=== PATIENT | female | born 1985 ===

== ENCOUNTER 2018-06-25 21:10 | Inpatient (IN) | payer BC ==
[2018-06-25 22:16] VITALS: BMI 29.4
[2018-06-25] MEDS ORDERED: Oxytocin 30 UNIT 30 UNITS/500 ML BAG IV ONE ×2 (22:16→23:04)
[2018-06-25] MEDS: Lactated Ringer's 1,000 ML IV SCH (22:43)
[2018-06-25 22:52] LABS: BASO % 0.1 % (0.0-2.0); EOS # 0.1 K/uL (0.0-0.7); EOS % 0.9 % (0.0-4.0); HEMOGLOBIN 12.2 g/dL (12.0-16.0); LYMPH # 2.3 K/uL (1.0-4.3); LYMPH % 25.1 % (20.0-40.0); MEAN CELL VOLUME 80.8 fl (81.0-99.0); MEAN CORPUSCULAR HEMOGLOBIN 27.3 pg (27.0-31.0); MEAN CORPUSCULAR HGB CONC 33.8 g/dL (33.0-37.0); MEAN PLATELET VOLUME 9.6 fl (7.2-11.7); MONO # 0.8 K/uL (0.0-0.8); MONO % 8.5 % (0.0-10.0); NEUT # 6.1 K/uL (1.8-7.0); NEUT % 65.4 % (50.0-75.0); RBC 4.48 Mil/uL (3.80-5.20); RED CELL DISTRIBUTION WIDTH 15.1 % (11.5-14.5); WHITE BLOOD COUNT 9.3 K/uL (4.8-10.8)
[2018-06-26] MEDS ORDERED: Fentanyl/Bupivacaine HCl 250 ML EPI ONE (07:46)
--- NOTE | 2018-06-26 07:53 | OBADHP ---
Datetime: 06/25/2018 22:32 Admit Comment, IP Provider: HPI: Harsha is a 33 yo at 38.6 who presents to L_D c/ pain anastasiia ry 5-10 min increasign intensity and frequency /10. Pt denies LOF but has brown discharge, slight bl eeding, +FM. . Good movement. ROS: as above, otherwise negative History One previous at term 13 years ago, one SAB PMH Denies PSH Denies Medications PNV Allergies NKDA Family History Non contributory OBJECTIVE See PE section Cervical exam performed by Dr. Cotto at clinic today, 4cm dilated Sporadic contractions every 6-10 minutes labs: A+, RPR/HIV negative, Hep B neg, Rubella Immune, GBS neg, GC/Chlamydia neg, GTT nor mal Assessment/Plan: 33 yo at 38.6 in labor - augmentation 25mcg vaginal cytotec followed by pitocin 3 hours later - NPO, maintenance fluids - May have epidural - GBS neg Abdomen - PN: Normal Lungs - PN: Normal Heart - PN: Normal HEENT - PN: Normal General - PN: Normal FHR - Baseline A Provider: 140 Gestation - Est Wks by US: 38.6 Vital Signs Provider: Reviewed; Within Normal Limits NICHD Variability Prov Fetus A: Moderate 6-25bpm NICHD Accel Fetus A IP Provider: [id number] NICHD Decel Fetus A IP Provider: None IP Adm Impression: Term, intrauterine IP Admit Plan: Admit to unit; Initiate labor induction protocol
[2018-06-26] MEDS ORDERED: Oxytocin 30 UNIT 30 UNITS/500 ML BAG IV ONE (07:57)
--- NOTE | 2018-06-26 07:58 | OBHP ---
Datetime: 06/25/2018 22:32 IP Adm Impression: Term, intrauterine IP Admit Plan: Admit to unit; Initiate labor induction protocol Admit Comment, IP Provider: HPI: Harsha is a 33 yo at 38.6 who presents to L_D c/ pain anastasiia ry 5-10 min increasign intensity and frequency /10. Pt denies LOF but has brown discharge, slight bl eeding, +FM. . Good movement. ROS: as above, otherwise negative History One previous at term 13 years ago, one SAB PMH Denies PSH Denies Medications PNV Allergies NKDA Family History Non contributory OBJECTIVE See PE section Cervical exam performed by Dr. Cotto at clinic today, 4cm dilated Sporadic contractions every 6-10 minutes labs: A+, RPR/HIV negative, Hep B neg, Rubella Immune, GBS neg, GC/Chlamydia neg, GTT nor mal Assessment/Plan: 33 yo at 38.6 in labor - augmentation 25mcg vaginal cytotec followed by pitocin 3 hours later - NPO, maintenance fluids - May have epidural - GBS neg Abdomen - PN: Normal Lungs - PN: Normal Heart - PN: Normal HEENT - PN: Normal General - PN: Normal FHR - Baseline A Provider: 140 Gestation - Est Wks by US: 38.6 Vital Signs Provider: Reviewed; Within Normal Limits NICHD Variability Prov Fetus A: Moderate 6-25bpm NICHD Accel Fetus A IP Provider: [id number] NICHD Decel Fetus A IP Provider: None
[2018-06-26] MEDS ORDERED: Lactated Ringer's 1,000 ML IV SCH (08:00)
[2018-06-26] MEDS ORDERED: Bupivacaine HCl 0.25% PF (30 ml) Inj ONE (08:27)
[2018-06-26] MEDS: Lactated Ringer's 1,000 ML IV SCH (08:52)
--- NOTE | 2018-06-26 09:52 | OBPN ---
Datetime: 06/26/2018 09:49 IP Progress Impression: Normal progression of labor IP Informed Consent Obtain: Vaginal Delivery IP Progress Plan: Continue present management Membranes, Provider: Bulging Amniotic Fluid Color, Provider: Clear FHR - Baseline A Provider: 140 Gestation - Est Wks by US: 38.6 Presentation-Admit: Vertex IP Progress Note Comment: pt seen adn exmie d admited for labor s/p augmnettin with cytotec, ptocin arom now fully diated s/p epdural, rpeorts pressure VSS VE: 10/100/0 EFM: 140/mod isai, intemritten varibale TOCO: q 5 min A/P @ 38.6 wks GA fully diated start pushign antics Vital Signs Provider: Reviewed; Within Normal Limits NICHD Variability Prov Fetus A: Moderate 6-25bpm Dilatation, Provider: 10 Effacement, Provider: 100 Station, Provider: 0 Datetime: 06/25/2018 22:32 NICHD Accel Fetus A IP Provider: [id number] NICHD Decel Fetus A IP Provider: None
--- NOTE | 2018-06-26 10:11 | OBDS ---
MATERNAL INFORMATION Provider Comments: pt was fully dilated and pushigh, aturmatic, spoetnoau delivery of head in [place], w ith loose nuchal cord x 1 with compund left hand. Atruamtic, spontaneous delivery of anterior followe d by posterir shoulder followed by delivery of the body. both oral and nasal passages of the baby wer e bulb suctioned. ubmicls cord was clamped and cut. baby hadned tomother on abdomen with rn abbi renee.cord blood collectedand sent x 2. Spotnaeous eliveyr of intact placenta with membanes. Fundus firm ., good hemostaiis. intact perienum, no complicaitons live femlae infant agprs 9,9 ebl 200ml LABOR SUMMARY EDC: 07/04/2018 00:00 No. Babies in Womb: 1 LABOR INFORMATION Cervical Ripening Agents: Cytotec @ (Annotations: 25 mcg inserted vaginally by Dr. Altman (OB Fellow) ) Group B Beta Strep: Negative MEMBRANES Membranes Rupture Method: Artificial Rupture of Membranes: 06/26/2018 06:50 Amniotic Fluid Color: Clear Amniotic Fluid Amount: Moderate Amniotic Fluid Odor: Normal
[2018-06-26] MEDS ORDERED: Oxycodone/Acetaminophen 5/325 mg Tab PO PRN ×2 (10:12)
[2018-06-26] MEDS ORDERED: Benzocaine/Menthol SPRAY TOP PRN (10:12)
[2018-06-27 06:56] LABS: BASO % 0.1 % (0.0-2.0); EOS # 0.1 K/uL (0.0-0.7); EOS % 1.1 % (0.0-4.0); LYMPH # 2.4 K/uL (1.0-4.3); LYMPH % 24.1 % (20.0-40.0); MEAN CELL VOLUME 80.3 fl (81.0-99.0); MEAN CORPUSCULAR HEMOGLOBIN 27.5 pg (27.0-31.0); MEAN CORPUSCULAR HGB CONC 34.3 g/dL (33.0-37.0); MEAN PLATELET VOLUME 9.1 fl (7.2-11.7); MONO # 0.4 K/uL (0.0-0.8); MONO % 4.3 % (0.0-10.0); NEUT # 7.1 K/uL (1.8-7.0); NEUT % 70.4 % (50.0-75.0); RBC 3.62 Mil/uL (3.80-5.20); RED CELL DISTRIBUTION WIDTH 15.4 % (11.5-14.5); WHITE BLOOD COUNT 10.1 K/uL (4.8-10.8)
[2018-06-27] MEDS: Multivitamin With Minerals Tab PO SCH (08:32)
--- NOTE | 2018-06-27 11:26 | OBPPN ---
Datetime: 06/27/2018 11:19 PP Pain Prov: Within normal limits PP Nausea Prov: Denies PP Flatus Prov: Yes PP BM Prov: No PP Breasts Prov: Normal PP Heart Prov: Normal PP Lungs Prov: Normal PP Abdomen/Uterus Prov: Normal PP Lochia Prov: Normal PP Vulva/Perineum Prov: Normal PP CVA Tenderness Prov: Normal PP Extremities Prov: Normal PP C/S Incision Prov: Not Applicable PP Progress Prov: Normal PP Impression Prov: Normal progression PP Plan Prov: Continue present management PP Progress Note Prov: pt doig nwell, no compliants VSS PE see aobve A/P s/p NSVPD PPD #1 doing well am cbc pain manamgnet regualr diet encouarage breast feedngmabuating Vital Signs Provider PP: Reviewed; Within Normal Limits
--- NOTE | 2018-06-28 00:31 | OBPPN ---
Datetime: 06/28/2018 00:28 PP Pain Prov: Within normal limits PP Nausea Prov: Denies PP Flatus Prov: Yes PP Breasts Prov: Normal PP Heart Prov: Normal PP Lungs Prov: Normal PP Abdomen/Uterus Prov: Normal PP Lochia Prov: Normal PP Vulva/Perineum Prov: Normal PP CVA Tenderness Prov: Normal PP Extremities Prov: Normal PP C/S Incision Prov: Not Applicable PP Progress Prov: Normal PP Impression Prov: Normal progression PP Plan Prov: Continue present management; Discharge PP Progress Note Prov: pt doing well, no complaints. pt reprots pain contorlle,d ambuating, voiding, passifn flatus, tolerating regular diet, breat feeding, denies fever, chils ,naseu, ovmitng VSS PE see aobve A/P s/p NSVPD PPD #2 doing well dc home later today rto 6 week precauting ivne Vital Signs Provider PP: Reviewed; Within Normal Limits
--- NOTE | 2018-06-28 00:31 | OBDCSUM ---
Datetime: 06/28/2018 00:29 Discharged to, Provider: Home Follow up at, Provider: Dr Cotto Disch Instr Activity: Normal activity Disch Instr Diet: Regular Discharge Instructions, Provider: Routine instructions given Discharge Diagnosis, Provider: Term Delivered Discharge Time: 06/28/2018 11:00 Follow up in weeks, Provider: 6 weeks Disch Referrals: None Contraception discussed, Prov: Yes Disch Activity Restrictions: No sexual activity; Nothing in vagina - [place], tampons, douche Discharge Comment, Provider: precautins given Contraception after Delivery: Not Planning to Use
[2018-06-28] MEDS: Multivitamin With Minerals Tab PO SCH (08:39)
[2018-06-28 18:04] VITALS: BP 117/74; PULSE 95; RESP 20; TEMP 98.4
== END 2018-06-28 12:15 | disposition home or self-care (01) | DRG 775 ==
LOC: H.EROB2 21:10 → H.L&D 22:16 → H.OB/GYN 06-26 15:00
PROVIDERS: ADMIT Obstetrics & Gynecology; ATTEND Obstetrics & Gynecology
PROC: 4A1HXCZ Monitoring of Products of Conception, Cardiac Rate, External Approach (ICD-10-PCS; 2018-06-25)
PROC: 10E0XZZ Delivery of Products of Conception, External Approach (ICD-10-PCS; principal; 2018-06-26)
PROC: 10907ZC Drainage of Amniotic Fluid, Therapeutic from Products of Conception, Via Natural or Artificial Opening (ICD-10-PCS; 2018-06-26)
DX: O69.81X0 Labor and delivery complicated by cord around neck, without compression, not applicable or unspecified (principal); O32.6XX0 Maternal care for compound presentation, not applicable or unspecified; Z37.0 Single live birth; Z3A.38 38 weeks gestation of pregnancy